=== PATIENT | male | born 1965 | race Caucasian/White ===

== ENCOUNTER 2022-04-26 17:45 | Outpatient (CLI) | payer BC, SELFPAY | END 2022-04-26 17:46 | disposition home or self-care (01) | LOC: LKVREF 17:46 | PROVIDERS: Visit Provider Nurse Practitioner Family | DX: M79.672 Pain in left foot (principal); L08.9 Local infection of the skin and subcutaneous tissue, unspecified | CPT/HCPCS: 87070; 87186 ==